=== PATIENT | female | born 1955 | race African-American/Black ===

== ENCOUNTER 2017-06-01 12:11 | Observation (INO) | payer OTHER, MEDICAID ==
[~2017-06-01] VITALS: Ht 160 cm; Wt 136.1 kg
[2017-06-01] MEDS ORDERED: LISI2.5T47 PO (12:33)
[2017-06-01] MEDS ORDERED: ATOR10TA69 PO (12:33)
[2017-06-01] MEDS ORDERED: ATROV INH (12:33)
[2017-06-01] MEDS ORDERED: METF500T4 PO (12:33)
[2017-06-01] MEDS ORDERED: RIVA10TA PO (12:33)
[2017-06-01] MEDS ORDERED: CARV6.2548 PO (12:33)
[2017-06-01] MEDS ORDERED: TRAM50TA3 PO (12:33)
[2017-06-01] MEDS ORDERED: AMLO2.5T45 PO (12:33)
[2017-06-01 14:22] LABS: BASOPHILS % 1.1 % (0.0-2.0); EOSINOPHILS % 1.4 % (0.0-5.0); HEMATOCRIT. 36.6 % (36.0-48.0); HEMOGLOBIN. 11.9 g/dL (12.0-16.0); LYMPHOCYTES % 23.4 % (20.0-50.0); MEAN CORPUSCULAR HEMOGLOBIN 28.3 pg (28.0-32.0); MEAN CORPUSCULAR VOLUME 86.6 fL (81.0-99.0); MEAN PLATELET VOLUME 8.6 fl (7.4-10.4); MONOCYTES % 6.3 % (2.0-8.0); NEUTROPHILS % 67.8 % (40.0-76.0); PLATELET 192 x1000/uL (130-400); RED BLOOD CELL COUNT 4.22 mill/uL (4.2-5.4); RED CELL DISTRIBUTION WIDTH 14.3 % (11.6-14.6)
[2017-06-01 14:34] LABS: CARBON DIOXIDE 29 mEq/L (21-32); CHLORIDE 108 mEq/L (98-107); ETHANOL BLOOD < 10 mg/dL
[2017-06-01] MEDS ORDERED: CLONIDINE 0.1MG TABLET PO PRN (15:45)
[2017-06-01] MEDS ORDERED: IPRATROPIUM/ALBUTEROL 0.5-3(2.5)MG/3ML NEB INH PRN (15:45)
[2017-06-01] MEDS ORDERED: ONDANSETRON HCL 4MG/2ML VIAL IV PRN (15:45)
[2017-06-01] MEDS ORDERED: HYDROCODONE/ACETAMINOPHEN 5/325MG TABLET PO PRN (15:45)
[2017-06-01] MEDS ORDERED: ACETAMINOPHEN 325MG TABLET PO PRN (15:45)
[2017-06-01 19:30] VITALS: BP 151/78
[2017-06-01 20:00] VITALS: BP 129/82
[2017-06-01] MEDS ORDERED: RIVAROXABAN 15 MG TABLET PO SCH (20:00)
[2017-06-01] MEDS ORDERED: LORAZEPAM 0.5MG TABLET PO PRN (22:30)
[2017-06-01 23:21] LABS: CHLORIDE 105 mEq/L (98-107)
[2017-06-01 23:27] LABS: CARBON DIOXIDE 28 mEq/L (21-32)
[2017-06-01 23:28] LABS: TROPONIN I < 0.02 ng/mL (0.00-0.04)
[2017-06-01 23:41] LABS: CREATINE KINASE 84 IU/L (26-192)
[2017-06-02] VITALS: BP 106/67
[2017-06-02 04:00] VITALS: BP 124/77
[2017-06-02 06:17] LABS: BASOPHILS % 0.7 % (0.0-2.0); EOSINOPHILS % 1.8 % (0.0-5.0); HEMATOCRIT. 35.5 % (36.0-48.0); HEMOGLOBIN. 11.7 g/dL (12.0-16.0); LYMPHOCYTES % 26.1 % (20.0-50.0); MEAN CORPUSCULAR HEMOGLOBIN 28.7 pg (28.0-32.0); MEAN CORPUSCULAR VOLUME 87.1 fL (81.0-99.0); MEAN PLATELET VOLUME 8.8 fl (7.4-10.4); NEUTROPHILS % 64.4 % (40.0-76.0); PLATELET 172 x1000/uL (130-400); RED BLOOD CELL COUNT 4.07 mill/uL (4.2-5.4); RED CELL DISTRIBUTION WIDTH 14.2 % (11.6-14.6)
[2017-06-02 06:48] LABS: CREATINE KINASE 77 IU/L (26-192); HDL CHOLESTEROL 48 mg/dL (40-59); LDL CHOLESTEROL 53 mg/dL (5-100); T4 FREE 1.15 ng/dL (0.76-1.46); TROPONIN I < 0.02 ng/mL (0.00-0.04)
[2017-06-02 08:00] VITALS: BP 99/55
[2017-06-02 12:00] VITALS: BP 131/88
[2017-06-02 16:00] VITALS: BP 155/75
[2017-06-02 16:10] VITALS: BP 155/75
[2017-06-02] MEDS ORDERED: PNEUMOCOCCAL 23-VAL P-SAC VAC 0.5 ML IM ONE (17:15)
== END 2017-06-02 17:30 | disposition home or self-care (01) ==
LOC: ER 13:46 → 8WST 14:55 → INTOOBSV 14:55 → ENRESERV 17:59
PROVIDERS: ADMIT Internal Medicine; ATTEND Internal Medicine
DX: T82.118A Breakdown (mechanical) of other cardiac electronic device, initial encounter (principal); E11.9 Type 2 diabetes mellitus without complications; E66.9 Obesity, unspecified; E78.5 Hyperlipidemia, unspecified; I11.0 Hypertensive heart disease with heart failure; I50.9 Heart failure, unspecified; I82.502 Chronic embolism and thrombosis of unspecified deep veins of left lower extremity; J44.9 Chronic obstructive pulmonary disease, unspecified; Z45.02 Encounter for adjustment and management of automatic implantable cardiac defibrillator; Y71.2 Prosthetic and other implants, materials and accessory cardiovascular devices associated with adverse incidents; Z79.01 Long term (current) use of anticoagulants; Z95.810 Presence of automatic (implantable) cardiac defibrillator
CPT/HCPCS: 36415; 71010; 80048; 80061; 82550; 84439; 84443; 84484; 85025; 93005; 93970; 99285; G0378; G0482

== ENCOUNTER 2018-12-30 21:01 | Inpatient (IN) | payer MEDICAID, OTHER ==
[~2018-12-30] VITALS: Ht 160 cm; Wt 113.0 kg
[~2018-12-30 21:01] MED LIST: AMLO2.5T45 PO; ATOR10TA69 PO; ATROV INH; CARV6.2548 PO; LISI2.5T47 PO; METF-414 PO; RIVA10TA PO; TRAM50TA3 PO
[2018-12-30] MEDS ORDERED: FLUCONAZOLE 100MG TABLET PO ONE (23:00)
[2018-12-30] MEDS: FLUCONAZOLE 150MG TABLET PO SCH ×2 (23:47→23:48)
[2018-12-30 23:50] LABS: CHLORIDE 98 mEq/L (98-107)
[2018-12-30 23:51] LABS: BASOPHILS % 0.8 % (0.0-2.0); EOSINOPHILS % 1.5 % (0.0-5.0); HEMATOCRIT. 39.5 % (36.0-48.0); HEMOGLOBIN. 12.8 g/dL (12.0-16.0); LYMPHOCYTES % 29.6 % (20.0-50.0); MEAN CORPUSCULAR HEMOGLOBIN 29.7 pg (28.0-32.0); MEAN CORPUSCULAR VOLUME 91.4 fL (81.0-99.0); MEAN PLATELET VOLUME 9.9 fl (7.4-10.4); NEUTROPHILS % 60.1 % (40.0-76.0); PLATELET 177 x1000/uL (130-400); RED BLOOD CELL COUNT 4.32 mill/uL (4.2-5.4); RED CELL DISTRIBUTION WIDTH 13.5 % (11.6-14.6)
[2018-12-30 23:53] LABS: PROTHROMBIN TIME 10.2 sec (9.1-11.1)
[2018-12-31 00:29] LABS: PARTIAL THROMBOPLASTIN TIME < 21.0 sec (23.4-31.0)
[2018-12-31] MEDS ORDERED: INSULIN REGULAR (HUMULIN R) 300UNITS/3ML SUBCUT SCH (01:19)
[2018-12-31 02:30] VITALS: BP 125/72
[2018-12-31 02:40] VITALS: BP 125/72
[2018-12-31] MEDS ORDERED: DIPHENHYDRAMINE 25MG CAPSULE PO ONE (03:45)
[2018-12-31] MEDS ORDERED: HYDROCODONE/ACETAMINOPHEN 5/325MG TABLET PO PRN (03:45)
[2018-12-31] MEDS ORDERED: TEMAZEPAM 15MG CAPSULE PO PRN (03:45)
[2018-12-31] MEDS ORDERED: DEXTROSE 50% WATER 50ML SYRINGE IV PRN (03:45)
[2018-12-31] MEDS ORDERED: DIPHENHYDRAMINE 25MG CAPSULE PO PRN (04:00)
[2018-12-31] MEDS: BLOOD SUGAR DIAGNOSTIC STRIP TEST SCH ×4 (05:44→21:00)
[2018-12-31] MEDS: INSULIN LISPRO 100 UNITS/ML SUBCUT SCH ×4 (06:22→21:00)
[2018-12-31] MEDS: PANTOPRAZOLE 40MG DR TABLET PO SCH ×2 (06:28→09:38)
[2018-12-31] MEDS ORDERED: PNEUMOCOCCAL 23-VAL P-SAC VAC 0.5 ML IM ONE (07:30)
[2018-12-31] MEDS ORDERED: INFLUENZA VIRUS VACCINE(AFLURIA) 0.5ML SYR IM ONE (07:30)
[2018-12-31 07:58] LABS: BASOPHILS % 0.9 % (0.0-2.0); EOSINOPHILS % 2.5 % (0.0-5.0); HEMATOCRIT. 36.9 % (36.0-48.0); HEMOGLOBIN. 11.9 g/dL (12.0-16.0); LYMPHOCYTES % 32.8 % (20.0-50.0); MEAN CORPUSCULAR HEMOGLOBIN 29.3 pg (28.0-32.0); MEAN CORPUSCULAR VOLUME 90.6 fL (81.0-99.0); MEAN PLATELET VOLUME 9.6 fl (7.4-10.4); MONOCYTES % 7.5 % (2.0-8.0); NEUTROPHILS % 56.3 % (40.0-76.0); PLATELET 172 x1000/uL (130-400); RED BLOOD CELL COUNT 4.07 mill/uL (4.2-5.4); RED CELL DISTRIBUTION WIDTH 13.4 % (11.6-14.6)
[2018-12-31 08:12] LABS: CHLORIDE 101 mEq/L (98-107)
[2018-12-31 08:36] LABS: CLARITY URINE CLEAR (CLEAR); COLOR URINE YELLOW (YELLOW); KETONES URINE TRACE (NEGATIVE); LEUKOCYTE ESTERASE URINE NEGATIVE (NEGATIVE); NITRITE URINE NEGATIVE (NEGATIVE); OCCULT BLOOD URINE NEGATIVE (NEGATIVE); PROTEIN URINE NEGATIVE (NEGATIVE); SPECIFIC GRAVITY URINE 1.036 (1.005-1.030); UROBILINOGEN URINE 0.2 E.U./dL (0.2-1.0)
[2018-12-31] MEDS ORDERED: ENOXAPARIN 40MG/0.4ML SYR SUBCUT SCH (09:00)
[2018-12-31] MEDS: CARVEDILOL 12.5MG TABLET PO SCH ×2 (09:38→22:39)
[2018-12-31] MEDS: LOSARTAN POTASSIUM 50 MG TABLET PO SCH (09:38)
[2018-12-31] MEDS: ENOXAPARIN 30MG/0.3ML SYR SUBCUT SCH ×2 (09:43→21:00)
[2018-12-31] MEDS ORDERED: INSULIN GLARGINE UD 100 UNITS/ML SYR SUBCUT SCH (10:00)
[2018-12-31 12:04] VITALS: BP 104/50
[2018-12-31] MEDS: IPRATROPIUM/ALBUTEROL 0.5-3(2.5)MG/3ML NEB HHN SCH ×3 (13:50→21:21)
[2018-12-31 16:00] VITALS: BP 120/63
[2018-12-31 17:50] LABS: BG BASE EXCESS -3.9 mmol/L (-2.0-2.0); BG DEOXYHEMOGLOBIN 5.6 % (0.0-5.0); BG HCO3 ACT 19.3 mmol/L (22.0-26.0); BG METHEMOGLOBIN 0.3 % (0.0-1.5); BG OXYGEN SATURATION 94.3 % (92.0-98.5); BG OXYHEMOGLOBIN 93.1 % (94.0-97.0); BG PCO2 30.3 mmHg (35.0-45.0); BG PH 7.423 (7.350-7.450); BG PO2 71.1 mmHg (75.0-100.0); BG SAMPLE SITE RIGHT RADIAL; BG TOTAL HEMOGLOBIN 13.7 g/dL (12.0-18.0); BG VENT MODE ROOM AIR
[2018-12-31 20:00] VITALS: BP_SYST 127; BP_SYST 99; BP_DIAS 111; BP_DIAS 61
[2018-12-31] MEDS: INSULIN GLARGINE UD 100 UNITS/ML SYR SUBCUT SCH (22:00)
[2019-01-01] VITALS (7 sets, daily range): BP systolic 97–115; BP diastolic 47–73
[2019-01-01 07:06] LABS: CHLORIDE 105 mEq/L (98-107)
[2019-01-01 07:09] LABS: HEMATOCRIT 36.8 % (36.0-48.0); HEMOGLOBIN 12.1 g/dL (12.0-16.0); MEAN CORPUSCULAR HEMOGLOBIN 29.5 pg (28.0-32.0); MEAN CORPUSCULAR VOLUME 90.1 fL (81.0-99.0); PLATELET 157 x1000/uL (130-400); RED BLOOD CELL COUNT 4.08 mill/uL (4.2-5.4); RED CELL DISTRIBUTION WIDTH 13.4 % (11.6-14.6)
[2019-01-01] MEDS: INSULIN LISPRO 100 UNITS/ML SUBCUT SCH ×4 (07:17→20:38)
[2019-01-01] MEDS: BLOOD SUGAR DIAGNOSTIC STRIP TEST SCH ×4 (07:18→20:25)
[2019-01-01] MEDS: CARVEDILOL 12.5MG TABLET PO SCH ×2 (09:00→20:26)
[2019-01-01] MEDS: LOSARTAN POTASSIUM 50 MG TABLET PO SCH (09:00)
[2019-01-01] MEDS: INSULIN GLARGINE UD 100 UNITS/ML SYR SUBCUT SCH (09:07)
[2019-01-01] MEDS: ENOXAPARIN 30MG/0.3ML SYR SUBCUT SCH ×2 (09:07→20:29)
[2019-01-01] MEDS: IPRATROPIUM/ALBUTEROL 0.5-3(2.5)MG/3ML NEB HHN SCH ×3 (10:32→21:01)
[2019-01-01] MEDS ORDERED: TEMAZEPAM 15MG CAPSULE PO PRN (21:00)
[2019-01-01] MEDS ORDERED: INSULIN GLARGINE UD 100 UNITS/ML SYR SUBCUT SCH (22:00)
== END 2019-01-01 22:27 | disposition short-term general hospital (02) | DRG 920 ==
LOC: ER 21:01 → 5WST 12-31 01:06 → EDBEDREQTM 12-31 01:08 → EDBEDREQDT 12-31 01:08 → EDBEDREQ 12-31 01:08 → ENRESERV 12-31 01:52
PROVIDERS: ADMIT Internal Medicine; ATTEND Internal Medicine
DX: T85.898A Other specified complication of other internal prosthetic devices, implants and grafts, initial encounter (principal); T82.847A Pain due to cardiac prosthetic devices, implants and grafts, initial encounter; D68.59 Other primary thrombophilia; Z68.41 Body mass index [BMI] 40.0-44.9, adult; I42.9 Cardiomyopathy, unspecified; B37.9 Candidiasis, unspecified; E11.65 Type 2 diabetes mellitus with hyperglycemia; J44.9 Chronic obstructive pulmonary disease, unspecified; Y83.8 Other surgical procedures as the cause of abnormal reaction of the patient, or of later complication, without mention of misadventure at the time of the procedure; I50.9 Heart failure, unspecified; N76.0 Acute vaginitis; E66.9 Obesity, unspecified; E86.0 Dehydration; E87.6 Hypokalemia; I11.0 Hypertensive heart disease with heart failure; H53.8 Other visual disturbances; J45.909 Unspecified asthma, uncomplicated; Y92.89 Other specified places as the place of occurrence of the external cause; Z86.711 Personal history of pulmonary embolism; Z87.891 Personal history of nicotine dependence; Z88.0 Allergy status to penicillin; Z79.899 Other long term (current) drug therapy; Z79.84 Long term (current) use of oral hypoglycemic drugs; Z95.810 Presence of automatic (implantable) cardiac defibrillator; Z87.828 Personal history of other (healed) physical injury and trauma; Z86.718 Personal history of other venous thrombosis and embolism; Z23 Encounter for immunization
CPT/HCPCS: 36415; 36600; 71045; 80048; 82010; 82375; 82805; 82962; 83036; 83880; 84484; 85027; 90686; 90732; 93005; 93306; 93970; 94640; 96372; 99285; J1650; J1815; J7620